=== PATIENT | female | born 1950 | race Caucasian/White ===

== ENCOUNTER 2017-11-20 15:35 | Emergency (ER) | payer OTHER ==
[2017-11-20] MEDS: SOD CHLORIDE 0.9% 1,000 ML IV (17:40)
[2017-11-20] MEDS: METOCLOPRAMIDE 10 MG INJ IV (17:40)
[2017-11-20] MEDS: KETOROLAC 30 MG INJ IV (17:41)
[2017-11-20] MEDS: DIPHENHYDRAMINE 50 MG INJ IV ×2 (17:41→17:43)
[2017-11-20 17:53] LABS: ADD MAN DIFF? NO
[2017-11-20 17:54] LABS: BASOPHILS % 0.2 % (0.0-2.0); EOSINOPHILS % 0.1 % (0.0-7.0); HEMATOCRIT 34.6 % (37.0-47.0); HEMOGLOBIN 11.4 g/dl (12.0-16.0); LYMPHOCYTES # 1.7 10^3/ul (0.8-2.9); LYMPHOCYTES % 17.2 % (15.0-51.0); MEAN CORPUSCULAR HEMOGLOBIN 28.6 pg (29.0-33.0); MEAN CORPUSCULAR HGB CONC 32.9 g/dl (32.0-37.0); MEAN CORPUSCULAR VOLUME 86.7 fl (82.0-101.0); MEAN PLATELET VOLUME 9.5 fl (7.4-10.4); MONOCYTES % 9.9 % (0.0-11.0); NEUTROPHIL # 6.9 10^3/ul (1.6-7.5); NEUTROPHILS % 72.2 % (39.0-77.0); PLATELET COUNT 301 10^3/UL (140-415); RED BLOOD COUNT 3.99 10^6/ul (4.20-5.40); RED CELL DISTRIBUTION WIDTH 13.4 % (11.5-14.5)
[2017-11-20 17:54] LABS: WHITE BLOOD COUNT 9.6 10^3/ul (4.8-10.8)
== END 2017-11-20 19:19 | disposition home or self-care (01) ==
LOC: FTE 15:35
DX: R51 Headache (principal); E11.9 Type 2 diabetes mellitus without complications; Z79.84 Long term (current) use of oral hypoglycemic drugs; Z85.41 Personal history of malignant neoplasm of cervix uteri
CPT/HCPCS: 36415; 85025; 96374; 96375; 99284-25